=== PATIENT | female | born 1970 | race Caucasian/White ===

== ENCOUNTER → 2016-07-03 | Outpatient (CLI) | payer MEDICAID ==
[~2016-07-03] MED LIST: AMITRIPTYLINE50 MG PO; BACTRIM DS 8001 TA1 PO; BACTRIM DS 8001 TAB PO; CLINDAMYCIN HC300 MG PO; DOXYCYCLINE HY100 M4 PO; ERYTHROMYCIN500 MG PO; ESCITALOPRAM20 MG NG; ETODOLAC400 MG PO; FLUCONAZOLE150 MG PO; HABITROL21 MG/24 H TD; HYDROCHLOROTHIA1 TAB PO; IPRATROPIUM BROM3 M1 IH; LEVOFLOXACIN 5500 M1 PO; LEVOTHYROXIN0.125 MG PO; MEDROL 4MG. DOSE4 MG PO; NOMEDS XX; NORCO 325 MG-51 TAB PO; NYSTATIN SU60 ML/BOT PO; PAROXETINE20 MG PO; PERCOCET1 TAB PO; PREDNISONE 10MG10 MG PO; PREDNISONE 20MG20 MG PO; SPIRIVA HA1 PUFF/INH IH; SYMBICORT1 AE1 IH; SYNTHROID 0.0.125 MG PO; TALWIN NX1 TAB PO; TESSALON PERLE100 M1 PO; ZITHROMAX Z PA250 MG PO
[2016-07-03 15:17] LABS: HEMOGLOBIN 11.3 g/dL (12.2-16.2); LYMPH # 2.3 K/mm3 (0.7-4.5); LYMPH % 19.5 % (10-50.0)
[2016-07-03 15:48] LABS: BUN 13 mg/dL (7-18)
[2016-07-03 16:02] LABS: GFR (ESTIMATED) 91 ML/MIN (59-)
[2016-07-08 12:39] LABS: 1,25-Dihydroxy, Vitamin D-2 12 pg/mL (.); 1,25-Dihydroxy, Vitamin D-3 39 pg/mL (.); Total 1,25-Dihydroxy,Vitamin D 51 pg/mL (.)
== END ==
LOC: LAB 14:19
PROVIDERS: Physician Assistant
DX: J44.1 Chronic obstructive pulmonary disease with (acute) exacerbation (principal); E55.9 Vitamin D deficiency, unspecified; R53.1 Weakness; R53.83 Other fatigue

== ENCOUNTER → 2016-09-03 | Outpatient (CLI) | payer MEDICAID ==
--- NOTE | 2016-09-04 09:42 | RADIOLOGY REPORT PS360 ---
MRI-L-SPINE W/O, MRI-3D RENDERING/MYELOGRAM HISTORY: Left-sided low back pain with numbness and pain and tingling radiating into both legs LUMBAGO WITH SCIATICA, LEFT SIDE ORDERING PHYSICIAN: Keith Montes MD PATIENT AGE: 45 years COMPARISON: Radiograph of 07/25/2016 TECHNIQUE: Standard multiplanar multiecho sequences are performed without contrast. 3-D MIP and myelographic images are also rendered and reviewed FINDINGS: There is normal alignment. Spinal cord ends at the L1 level. T11-T12: Mild degenerative disc disease with minimal bulging disc. T12-L1: Mild degenerative disc disease. There is focal increased T2 signal involving the right paracentral aspect of the disc posteriorly consistent with an annular tear. No disc herniation evident. There is mild kyphosis at this level and mild bulging disc slightly eccentric toward the left causing some minimal flattening of the cord anteriorly without canal stenosis. L1-L2: Mild degenerative disc disease with minimal bulging disc slightly eccentric toward the left. L2-L3, L3-L4, L4-L5: Mild facet hypertrophic change. L5-S1: Slight decrease in the disc space without disc desiccation or neural impingement. No disc herniation or canal stenosis. No acute fracture. IMPRESSION: 1. Mild spondylosis of the lower thoracic and lumbar spine as detailed above. 2. Degenerative disc disease with focal increased T2 signal involving the right paracentral aspect of the disc posteriorly consistent with an annular tear. No disc herniation evident. There is mild kyphosis at this level and mild bulging disc slightly eccentric toward the left causing some minimal flattening of the cord anteriorly without canal stenosis 3. No disc herniation evident
== END ==
LOC: RAD 09:08
DX: M54.42 Lumbago with sciatica, left side (principal)

== ENCOUNTER → 2016-09-10 | Outpatient (CLI) | payer MEDICAID ==
[~2016-09-10] MED LIST changes: +ALBUTEROL-1 PUFF/14. IN; +ALBUTEROL-200 PUFFS/ IH; +AMITRIPTYLINE 225 MG PO; +BISOPROLOL 5MG T5 MG PO; +BREO ELLIPTA 21 EACH IH; +DIAZEPAM5 MG PO; +LEXAPRO 20 MG T20 MG PO; +OMEPRAZOLE40 MG PO; +PENTOXIFYL XR400 MG PO; +PROMETHAZINE D118 ML PO; +SEROQUEL 25MG T25 MG PO; +SEROQUEL25 MG PO; +SYNTHROID 0.1M0.1 MG PO; +TRAZODONE 50MG50 MG PO
--- NOTE | 2016-09-10 17:15 | RADIOLOGY REPORT PS360 ---
ANKLE-LT-3 VIEWS HISTORY: ACUTE LT ANKLE PAIN ORDERING PHYSICIAN: STEPHEN GONSALES PATIENT AGE: 45 years COMPARISON: None FINDINGS: No obvious fracture or dislocation. The joint spaces are well-preserved without significant hypertrophic change. On the lateral view there is an area of decreased attenuation at the anterior aspect of the ankle joint measuring 7 x 4 mm. This may be related to an artifact not readily apparent on the other views and appearing to involve both the distal tibia anteriorly and the talus. May be due to a lucent lesion of the fibula projecting over this area. If there is pain associated at this region then MRI may be of further value. With release recommend 8 2-3 month follow-up to confirm short-term stability and if persistent additional imaging could be performed with MRI or CT. IMPRESSION: 1. No definite acute finding. 2. Artifact versus lucent lesion of the ankle joint anteriorly. Consider follow-up if symptoms persist or are related to this region
== END ==
LOC: RAD 14:36
DX: M25.572 Pain in left ankle and joints of left foot (principal)

== ENCOUNTER 2016-10-14 13:07 | Day surgery (SDC) | payer MEDICAID ==
[2016-12-23] MEDS ORDERED: TRAZODONE 50MG50 MG PO (16:12)
== END 2016-10-14 13:24 ==
LOC: PM 13:07
DX: M51.36 Other intervertebral disc degeneration, lumbar region (principal)

== ENCOUNTER → 2017-02-09 | Outpatient (CLI) | payer MEDICAID ==
[2017-02-09 18:08] LABS: HEMOGLOBIN 11.2 g/dL (12.2-16.2); LYMPH # 1.8 K/mm3 (0.7-4.5); LYMPH % 24.2 % (10-50.0)
[2017-02-09 19:09] LABS: BUN 20 mg/dL (7-18)
[2017-02-09 19:17] LABS: GFR (ESTIMATED) 49 ML/MIN (59-)
[2017-02-11 10:40] LABS: Folate (Folic Acid) 7.4 ng/mL (>3.0)
[2017-02-12 07:39] LABS: Vitamin D, 25-Hydroxy 77.7 ng/mL (30.0-100.0)
== END ==
LOC: LAB 17:07
PROVIDERS: Physician Assistant
DX: G40.A09 Absence epileptic syndrome, not intractable, without status epilepticus (principal); E55.9 Vitamin D deficiency, unspecified

== ENCOUNTER → 2017-03-10 | Outpatient (CLI) | payer MEDICAID ==
[2017-03-10 14:45] LABS: HEMOGLOBIN 10.5 g/dL (12.2-16.2); LYMPH # 2.2 K/mm3 (0.7-4.5); LYMPH % 18.3 % (10-50.0)
--- NOTE | 2017-03-10 16:28 | RADIOLOGY REPORT PS360 ---
ABD ACUTE(MUL VIEWS) HISTORY: LEFT UPPER QUAD PAIN ORDERING PHYSICIAN: STEPHEN GONSALES PATIENT AGE: 46 years COMPARISON: 03/25/2016 FINDINGS: Frontal view the chest shows mild hyperinflation with hyperlucency of the upper lobes consistent with COPD. There is a moderate amount retained colonic feces throughout the colon. There are surgical clips in right upper quadrant. No intestinal obstruction, free air, or urolithiasis is evident. IMPRESSION: 1. COPD. 2. Constipation
[2017-03-10 18:14] LABS: BUN 21 mg/dL (7-18); GFR (ESTIMATED) 29 ML/MIN (59-)
== END ==
LOC: LAB 14:13
PROVIDERS: Physician Assistant
DX: R10.12 Left upper quadrant pain (principal)

== ENCOUNTER → 2017-03-16 | Outpatient (CLI) | payer MEDICAID ==
[2017-03-16 21:04] LABS: BUN 21 mg/dL (7-18)
[2017-03-16 21:15] LABS: GFR (ESTIMATED) 49 ML/MIN (59-)
== END ==
LOC: LAB 18:28
PROVIDERS: Physician Assistant
DX: R79.89 Other specified abnormal findings of blood chemistry (principal)

== ENCOUNTER → 2017-03-26 | Outpatient (CLI) | payer MEDICAID ==
[2017-03-26 16:37] LABS: BUN 34 mg/dL (7-18)
[2017-03-26 16:45] LABS: GFR (ESTIMATED) 54 ML/MIN (59-)
== END ==
LOC: LAB 15:22
PROVIDERS: Nurse Practitioner Family
DX: R79.89 Other specified abnormal findings of blood chemistry (principal); E03.9 Hypothyroidism, unspecified

== ENCOUNTER → 2017-04-02 | Outpatient (CLI) | payer MEDICAID ==
--- NOTE | 2017-04-03 07:33 | RADIOLOGY REPORT PS360 ---
MRI-BRAIN W/WO HISTORY: Headache, dizziness, blurred vision, seizures ALTERATION CONSCIOUSNESS, TREMOR, SCHIZOAFFECTIVE DISORDER ORDERING PHYSICIAN: MARSHA RYDER PATIENT AGE: 46 years COMPARISON: CT scan of 02/18/2017 TECHNIQUE: Standard multiplanar multiecho sequences are performed without and with gadolinium enhancement. FINDINGS: There is absence of flow void within the right internal carotid artery suggesting occlusion of the right ICA. No midline shift or mass effect evident. No intracranial hemorrhage. There is normal thao-white matter differentiation with no abnormal white matter signal intensity evident. There is no evidence of acute infarction or other areas of abnormal restricted diffusion. No enhancing lesions are evident. The cerebellopontine angles, cerebellum, and brainstem are unremarkable. No intra or extra-axial mass. The pituitary and optic chiasm are unremarkable. No cerebellar ectopia. Hippocampal gyri are unremarkable in the temporal horns are symmetric. No mastoid effusion. There is moderate mucosal thickening of the left maxillary sinus. IMPRESSION: 1. Absence of flow void artifact within the right internal carotid artery. 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 Consider CTA of the great vessels, neck and head for more thorough evaluation. No acute or chronic infarction is evident. 2. Otherwise negative MRI of the brain without and with contrast. 3. Left maxillary sinus disease
== END ==
LOC: RAD 10:56
DX: R40.4 Transient alteration of awareness (principal); R25.1 Tremor, unspecified; F25.9 Schizoaffective disorder, unspecified
CPT/HCPCS: A9576